=== PATIENT | female | born 1945 | race Caucasian/White ===

== ENCOUNTER 2022-05-19 08:45 | Emergency (ER) | payer MEDICARE, OTHER ==
[~2022-05-19] VITALS: Ht 165.1 cm; Wt 98.7 kg
[2022-05-19 08:58] VITALS: BP 148/90
[2022-05-19] MEDS ORDERED: AMLO2.5T2 PO (11:13)
== END 2022-05-19 11:42 | disposition home or self-care (01) ==
LOC: ER 08:45
DX: I10 Essential (primary) hypertension (principal); Z88.2 Allergy status to sulfonamides; Z79.899 Other long term (current) drug therapy
CPT/HCPCS: 93005; 99283